=== PATIENT | male | born 1935 | race Caucasian/White ===

== ENCOUNTER 2024-07-28 08:44 | Outpatient (REF) | payer OTHER, SELFPAY ==
[2024-07-28 09:28] LABS: C Diff PCR Negative (Negative)
[2024-07-29 20:19] LABS: Campylobacter PCR Negative (Negative); Salmonella PCR Negative (Negative); Shiga Toxin PCR Negative (Negative); Shigella/Enteroinvasive Ecoli Negative (Negative)
== END 2024-07-28 08:45 | disposition home or self-care (01) ==
LOC: LBN 08:44
PROVIDERS: Visit Provider Physician Assistant Medical
DX: R19.7 Diarrhea, unspecified (principal)
CPT/HCPCS: 87493; 87505; 87177